=== PATIENT | male | born 1955 | race Two or more races ===

== ENCOUNTER 2018-03-21 11:10 | Emergency (ER) | payer MEDICAID, OTHER ==
[~2018-03-21] VITALS: Ht 170.2 cm; Wt 65.8 kg
--- NOTE | 2018-03-21 11:20 | NUR ---
PT A/OX4, PRESENTS TO THE ER C/O MULTIPLE BEE STINGS WHILE WORKING IN THE YARD. VSS. LEFT EAR RED IN APPEARANCE. PT REPORTS PAIN AT STING SITE 6/10, NON-PROVOKED, SHARP IN QUALITY, DOES NOT RADIATE, CONSTANT. PT STATES "I HEAR BUZZING IN MY LEFT EAR". PT DENIES C/P, SOB, N/V/D, DIZZINESS, HEADACHE.
[2018-03-21] MEDS ORDERED: diphenhydrAMINE 50 MG/1 ML VIAL IM ONE (11:45)
[2018-03-21] MEDS ORDERED: LIDOCAINE VISCUS 2% 15 ML UDC MM ONE (11:45)
[2018-03-21] MEDS ORDERED: LIDOCAINE VISCUS 2% 15 ML UDC ONE (11:46)
[2018-03-21] MEDS ORDERED: diphenhydrAMINE 50 MG/1 ML VIAL ONE (11:47)
--- NOTE | 2018-03-21 11:52 | NUR ---
VISCOUS LIDO FLUSHED INTO L EAR TO FLUSH OUT BEE.
--- NOTE | 2018-03-21 13:22 | NUR ---
Patient discharged to home in stable conditon. Written and verbal after care instructions given. Patient verbalizes understanding of instructions.
== END 2018-03-21 13:22 | disposition home or self-care (01) ==
LOC: ER 11:12
DX: T16.2XXA Foreign body in left ear, initial encounter (principal); T63.441A Toxic effect of venom of bees, accidental (unintentional), initial encounter; X58.XXXA Exposure to other specified factors, initial encounter; Y93.89 Activity, other specified; Y99.8 Other external cause status; Y92.89 Other specified places as the place of occurrence of the external cause
CPT/HCPCS: 69200; 96372; 99284; J1200; A4663